=== PATIENT | female | born 1985 | race Caucasian/White ===

== ENCOUNTER 2017-09-17 10:10 | Inpatient (IN) | payer BC ==
[2017-09-17] MEDS ORDERED: Bupivacaine 0.75% W/DEXTROSE 8.25% 2 ML AMP ONE ×2 (10:42→11:14)
[2017-09-17] MEDS ORDERED: Lidocaine 2% 10 ML INJ ONE (10:42)
[2017-09-17 10:50] VITALS: BMI 32.8
[2017-09-17] MEDS ORDERED: Oxytocin 10 UNITS/ML VIAL ONE ×2 (10:55→12:47)
[2017-09-17] MEDS ORDERED: ePHEDrine/0.9% NaCl/PF SYRINGE 50 mg/10 ml ONE (10:55)
[2017-09-17] MEDS ORDERED: PHENYLEPHRINE-NS 100 MCG/ML 10 ML SYRINGE ONE ×2 (10:55→13:54)
[2017-09-17] MEDS ORDERED: Morphine PF 1 MG/ML SYR ONE (10:56)
[2017-09-17] MEDS ORDERED: Ondansetron HCl/PF 4 MG/2 ML Vial IVP PRN ×4 (10:56→16:03)
[2017-09-17] MEDS ORDERED: Promethazine HCl 25 MG/ML VIAL IM PRN ×2 (10:56→12:42)
--- NOTE | 2017-09-17 10:58 | PDOC.LDHP ---
Labor and Delivery H&P Chief complaint: scheduled section HPI: 32yo at 39w1d by LMP for RCS. No complaints. Current gestational age (weeks): 39 Due date: 09/23/17 Dating criteria: last menstrual period Grav: 2 Para: 1 Current complications: none Abnormal US findings: No Past Medical History: hypothyroid, PCOS, mild asthma, infertility, h/o migraine BADILLO Current medications: pre-jamel vitamins (levothyroxine 100mcg, metformin ER 500 bid) Previous surgical history: low tranverse CS, other (nerve decompression in neck for migraines) Allergies/Adverse Reactions: Allergies Allergy/AdvReac Type Severity Reaction Status Date / Time No Known Allergies Allergy Verified 09/17/17 10:36 Social history: none - Physical Exam Vital signs reviewed and normal: yes General: NAD Heart: RRR Lungs: CTAB Abdomen: gravid Extremeties: no edema FHT: category 1 [place] contractions every: none - OB Labs Blood type: A RH: positive Antibody Screen: negative HIV: negative RPR: negative HEPSAg: negative 1 hour GCT: negative GBS: negative Rubella: immune - Assessment L&D Assessment: scheduled repeat section - Plan Plan: admit to L&D, to OR for section, informed consent obtained, anesthesia consult for pain management
[2017-09-17] MEDS ORDERED: CEFAZOLIN/Water 2 GM/20 ML SYRINGE SLOW IVP SCH (11:00)
[2017-09-17] MEDS ORDERED: Bicitra 30 ML UDCUP PO SCH (11:00)
[2017-09-17] MEDS ORDERED: Lactated Ringer's 1,000 ML IV SCH (11:00)
[2017-09-17] MEDS ORDERED: Lidocaine 1% PF 5 ML VIAL ONE ×2 (11:14→12:04)
[2017-09-17 11:29] LABS: Hemoglobin 12.4 g/dL (12.0-16.0); Mean Corpuscular HGB CONC 34.4 g/dL (32.0-36.0); Mean Corpuscular Volume 90.2 fL (78.0-98.0); Mean Platelet Volume 6.8 fL (7.4-10.4); Platelet Count 211 thou/uL (130-400); RBC Distribution Width 12.2 % (11.5-14.5); Red Blood Cell (RBC) Count 3.99 mill/uL (4.20-5.40); White Blood Cell (WBC) Count 9.5 thou/uL (4.8-10.8)
[2017-09-17] MEDS ORDERED: Ondansetron HCl/PF 4 MG/2 ML Vial ONE ×2 (11:40→13:54)
--- NOTE | 2017-09-17 12:06 | PDOC.OPDEL ---
OB Operative/Delivery Note Delivery Dr/Surgeon: Nancy Assist: Rylan Pre-Delivery Diagnosis: scheduled section Procedure/Post Delivery Dx: repeat low transverse CS (SKIN TAG REMOVAL AND ON Q PUMP PLACEMENT) Weeks gestation: 39 Anesthesia: spinal - Findings A Sex: male - 1 min: 8 - 5 min: 9 - Additional Findings/Plan Placenta delivered: spontaneous findings: low transverse hysterotomy without extension, normal uterus, normal tubes, normal ovaries Estimated blood loss: 700 Post delivery plan: routine recovery
[2017-09-17 12:24] LABS: Syphilis Antibody Nonreactive (Nonreactive); Syphilis Antibody Index 0.08 S/CO (<1.00 Non-Reactive)
[2017-09-17 12:25] LABS: HBSAg Index 0.13 S/CO (0-0.99); Hep B Surf Ag Non-Reactive S/CO (NonReactive)
[2017-09-17] MEDS ORDERED: Bupivacaine 0.25% HCL 30 ML VIAL ONE (12:33)
[2017-09-17] MEDS ORDERED: Ketorolac Tromethamine 30 MG/ML VIAL ONE ×2 (12:41→13:54)
[2017-09-17] MEDS ORDERED: diphenhydrAMINE 50 MG/ML VIAL IVP PRN (12:42)
[2017-09-17] MEDS ORDERED: Ketorolac Tromethamine 30 MG/ML VIAL IVP PRN (12:42)
[2017-09-17] MEDS ORDERED: Eucerin (Mineral Oil/Petrolatum,White) 30 gm Jar TOP PRN (12:42)
[2017-09-17] MEDS ORDERED: Naloxone HCl 0.4 mg/ml Vial IVP PRN ×2 (12:42)
[2017-09-17] MEDS ORDERED: Promethazine HCl 25 MG SUPP PR PRN (12:42)
[2017-09-17] MEDS ORDERED: Naloxone HCl 0.4 mg/ml Vial IV PRN (12:42)
[2017-09-17] MEDS ORDERED: Meperidine HCl/PF 25 MG/ML VIAL SLOW IVP PRN (12:43)
[2017-09-17] MEDS ORDERED: HYDROmorphone 2 MG/ML VIAL SLOW IVP PRN (12:43)
[2017-09-17] MEDS ORDERED: Communication Order-Pharmacy FS SCH (12:45)
[2017-09-17] MEDS ORDERED: Ketorolac Tromethamine 30 MG/ML VIAL IVP SCH (12:45)
[2017-09-17] MEDS ORDERED: Ropivacaine 0.2% 550 ML 750 ML NERVE BLCK SCH (13:45)
[2017-09-17] MEDS ORDERED: Ropivacaine HCl/PF 750 ML in Premix Bag 1 BAG NERVE BLCK SCH (14:00)
[2017-09-17] MEDS ORDERED: Adacel (T-DAP) 0.5 ML VIAL IM ONE (16:03)
[2017-09-17] MEDS ORDERED: Simethicone Chewable 80 MG TAB PO PRN (16:03)
[2017-09-17] MEDS ORDERED: diphenhydrAMINE 25 MG CAP PO PRN (16:03)
[2017-09-17] MEDS ORDERED: Lanolin Ointment 7 GM TUBE TOP PRN (16:03)
[2017-09-17] MEDS ORDERED: Acetaminophen 325 MG TAB PO PRN (16:03)
[2017-09-17] MEDS ORDERED: Bisacodyl 10 MG SUPP PR PRN (16:03)
[2017-09-17] MEDS: Ibuprofen 800 MG TAB PO SCH (17:43)
[2017-09-18] MEDS ORDERED: HYDROcodone/Acetaminophen 5/325 mg Tablet PO PRN (00:45)
[2017-09-18] MEDS: HYDROcodone/Acetaminophen 5/325 mg Tablet PO PRN ×2 (01:07→23:32)
[2017-09-18] MEDS: Ibuprofen 800 MG TAB PO SCH ×5 (06:07→21:41)
[2017-09-18] MEDS: Ferrous Sulfate 325 MG TAB PO SCH ×3 (06:07→23:35)
[2017-09-18] MEDS: Docusate Calcium (SURFAK) 240 MG CAP PO SCH ×3 (06:08→21:40)
[2017-09-18] MEDS: Levothyroxine Sodium 100 MCG TAB PO SCH (06:08)
[2017-09-18 07:53] LABS: Hemoglobin 11.6 g/dL (12.0-16.0); Mean Corpuscular HGB CONC 33.6 g/dL (32.0-36.0); Mean Corpuscular Hemoglobin 30.8 pg (27.0-31.0); Mean Corpuscular Volume 91.6 fL (78.0-98.0); Mean Platelet Volume 6.6 fL (7.4-10.4); Platelet Count 176 thou/uL (130-400); RBC Distribution Width 12.2 % (11.5-14.5); Red Blood Cell (RBC) Count 3.76 mill/uL (4.20-5.40); White Blood Cell (WBC) Count 12.1 thou/uL (4.8-10.8)
[2017-09-18] MEDS: Prenatal Vitamin 1 TAB PO SCH (09:05)
--- NOTE | 2017-09-18 13:46 | PDOC.PP ---
Post Progress Note Post Day #: 1 PO intake tolerated: yes Flatus: yes Ambulation: yes Vital Signs (12 hours) Temp Pulse Resp BP 09/18/17 11:45 98.0 F 84 20 103/55 L 09/18/17 08:07 98.2 F 71 20 105/55 L 09/18/17 08:00 98.2 F 71 20 09/18/17 04:00 97.9 F 75 18 Weight Weight 210 lb - Physical Examination General: NAD Cardiovascular: RRR Respiratory: non-labored breathing Abdominal: no distention, appropriately TTP Fundus firm & at: umb Skin: CS incision dry & intact Neurological: no gross focal deficits Result Diagrams: 09/18/17 07:37 Additional Labs: Post Labs Blood Type A POSITIVE 09/17/17 11:12 Hep Bs Antigen Non-Reactive S/CO (NonReactive) 09/17/17 11:12 (1) Term delivered Code(s): O80 - ENCOUNTER FOR FULL-TERM UNCOMPLICATED DELIVERY Status: Acute - Assessment/Plan POD1 s/p RCS at term VSSAF Doing well, appropriate milestones LC Rh pos RImm Cont postop care.
[2017-09-19] MEDS: Levothyroxine Sodium 100 MCG TAB PO SCH (06:20)
[2017-09-19] MEDS: Ibuprofen 800 MG TAB PO SCH ×2 (06:20→13:23)
[2017-09-19] MEDS: Prenatal Vitamin 1 TAB PO SCH (09:13)
[2017-09-19] MEDS: Docusate Calcium (SURFAK) 240 MG CAP PO SCH (09:13)
[2017-09-19] MEDS: Ferrous Sulfate 325 MG TAB PO SCH (09:14)
[2017-09-19 11:50] VITALS: BP 117/71; TEMP 98.1
--- NOTE | 2017-09-19 13:25 | OP ---
DATE OF OPERATION: 09/17/2017 PREOPERATIVE DIAGNOSES: 1. Intrauterine at 39 weeks. 2. Prior x1, declines trial of labor after . POSTOPERATIVE DIAGNOSES: 1. Intrauterine at 39 weeks. 2. Prior x1, declines trial of labor after . PROCEDURES: Repeat low transverse section via Pfannenstiel skin incision, skin tag removal and ON-Q pump placement. ATTENDING SURGEON: Alicia Cruz M.D. EDUCATION LIAISON: Milena Fagan D.O. ANESTHESIA: Spinal. ESTIMATED BLOOD LOSS: 700 mL. INTRAVENOUS FLUIDS: Two liters crystalloid. URINE OUTPUT: 500 mL of clear urine. COMPLICATIONS: None. PATHOLOGY: Skin tag. DRAINS: Lilly catheter. FINDINGS: Male , cephalic presentation, clear amniotic fluid, Apgars of 8 and 9, weight pendin g. Normal uterus, ovaries and tubes bilaterally. No adhesive disease. Approximately 1 x 1 papulate d verrucous appearing skin lesion on the left side of the mons pubis that was resected and sent for p athology. OPERATIVE TECHNIQUE: The patient was taken to the operating room where spinal anesthesia was obtaine d without difficulty. The patient was prepped and draped in a sterile fashion in dorsal supine posit ion with a leftward tilt. After ensuring adequacy of anesthesia, a Pfannenstiel skin incision was ma de and carried down to the underlying subcutaneous tissue with Bovie. The fascia was nicked in the m idline with the Bovie and carried laterally with Ramirez scissors. Superior aspect of the fascia was te nted with 2 Kochers and dissected off the rectus with the Ramirez scissors. The inferior aspect of the fascia was tented with 2 Kochers and dissected off the rectus down the pubic symphysis with the Mayos . The rectus was grasped just lateral to the midline bilaterally and the rectus was incised with a k nife and the peritoneum was bluntly entered into and manually retracted. The Gunnar O retractor was placed. The vesicouterine peritoneum was identified and bladder was taken down with the Metzenbaums. The lower uterine segment was incised in a transverse fashion with the Shook maneuver. The infant's head was brought to the hysterotomy and delivered atraumatically followed the body. The 's co rd was clamped and handed to awaiting yakelin team. Cord blood was obtained. Placenta was allowe d to spontaneously deliver. The uterus was cleared of all clots and debris. Hysterotomy was repaire d with a #1 Monocryl in a running locking fashion with excellent hemostasis. Irrigation of the pelvi s was performed and hemostasis was noted to be excellent. The Gunnar O retractor was removed out of the abdomen. The peritoneum was grasped with 3 Eden clamps and the fascia was grasped with a Genoveva clamp and elevated. The first intraperitoneal ONQ catheter was threaded down through the peritoneal incision just superior and left to the Pfannenstiel skin incision with the introducer needle. This was threaded and to across the hysterotomy and this was secured to the skin. At that time, the perit oneum was closed with a 2-0 chromic in a running fashion. The additional ON-Q catheter was threaded subfascially in between the rectus and the peritoneum and test dose was performed of both catheters w ith ease injection of the Marcaine. The fascia was then closed with an 0 PDS x1 suture with excellen t reapproximation. The subcutaneous tissue was irrigated and cauterized of any bleeders and reapprox imated with a 2-0 plain running fashion. Skin was closed with 4-0 Monocryl in subcuticular fashion. Dermabond was applied. The skin tag was then grasped with Montenegrin's and removed entirely with the u se of a knife and sent for pathology. This area was cauterized and Dermabond was placed over it and hemostasis was noted to be excellent. The patient tolerated procedure well. Sponge, lap, needle cou nt were correct x2. The patient was taken to recovery in stable condition. Patient received Ancef 2 grams prior to procedure.
== END 2017-09-19 14:25 | disposition home or self-care (01) | DRG 766 ==
LOC: L&D 10:10 → 3SW 16:04
PROVIDERS: ADMIT Student in an Organized Health Care Education/Training Program; ATTEND Student in an Organized Health Care Education/Training Program
PROC: 10D00Z1 Extraction of Products of Conception, Low, Open Approach (ICD-10-PCS; principal; 2017-09-17)
DX: O34.211 Maternal care for low transverse scar from previous cesarean delivery (principal); Z37.0 Single live birth; N85.8 Other specified noninflammatory disorders of uterus; Z3A.39 39 weeks gestation of pregnancy
CPT/HCPCS: 36415; 51702; 85027; 86780; 86850; 86900; 86901; 87340; 88305; A4306; J1885; J2001; J2274; J2405; J2590; J2795; J3490; S0020

== ENCOUNTER 2018-07-28 20:13 | Emergency (ER) | payer BC ==
[2018-07-28] MEDS ORDERED: Ketorolac Tromethamine 30 MG/ML VIAL ONE (21:26)
[2018-07-28] MEDS ORDERED: diphenhydrAMINE 50 MG/ML VIAL ONE (21:26)
[2018-07-28] MEDS ORDERED: Prochlorperazine 10 MG/2 ML VIAL ONE (21:26)
== END 2018-07-28 22:36 | disposition home or self-care (01) ==
LOC: SCSER 20:13
DX: G43.909 Migraine, unspecified, not intractable, without status migrainosus (principal); E03.9 Hypothyroidism, unspecified; Z79.899 Other long term (current) drug therapy
CPT/HCPCS: 96365; 96375; J0780; J1200; J1885

== ENCOUNTER 2019-01-18 17:37 | Emergency (ER) | payer BC ==
[2019-01-18] MEDS ORDERED: Prochlorperazine 10 MG/2 ML VIAL ONE (18:35)
[2019-01-18] MEDS ORDERED: diphenhydrAMINE 50 MG/ML VIAL ONE (18:35)
[2019-01-18] MEDS ORDERED: Ketorolac Tromethamine 30 MG/ML VIAL ONE (18:35)
== END 2019-01-18 19:43 | disposition home or self-care (01) ==
LOC: SCSER 17:37
DX: G43.909 Migraine, unspecified, not intractable, without status migrainosus (principal); E03.9 Hypothyroidism, unspecified
CPT/HCPCS: 96365; 96375; J0780; J1200; J1885

== ENCOUNTER 2020-04-14 14:17 | Outpatient (CLI) | payer BC, OTHER ==
--- NOTE | 2020-04-14 15:01 | ULT ---
THYROID ULTRASOUND: 04/14/20 INDICATION: History of autoimmune thyroiditis. COMPARISON: None. FINDINGS: Right thyroid lobe measures 4.1 x 1.5 x 1.2 cm. Left thyroid lobe measures 4.2 x 1.4 x 1.2 cm. Thyroi d isthmus measures 0.33 cm. There is heterogeneous echogenic appearance of the thyroid gland without a focal nodule. IMPRESSION: Slightly small heterogeneous thyroid gland without suspicious focal thyroid lesion. POS: [facility]
== END 2020-04-14 14:18 | disposition home or self-care (01) ==
LOC: BICULT 14:17
PROVIDERS: ATTEND Student in an Organized Health Care Education/Training Program
DX: E06.3 Autoimmune thyroiditis (principal); R94.6 Abnormal results of thyroid function studies
CPT/HCPCS: 76536